=== PATIENT | male | born 2000 | race Two or more races ===

== ENCOUNTER 2022-07-14 19:34 | Emergency (ER) | payer SELFPAY ==
--- NOTE | ~2022-07-14 | XR_ITS ---
EXAM: XR ankle LT min 3V, XR foot LT min 3V DATE: 07/14/2022 20:05 HISTORY: TWISTED LT ANKLE PAIN SWELLING LT FOOT/ANKLE . COMPARISON: None available. FINDINGS: Normal mineralization. Small ossific fragment along the superior margin of the anterior ta trista. Widening of the medial gutter. No lytic or blastic lesion. Joint spaces are maintained. No erosi on or periosteal change. Ankle swelling about the ankle joint. Dorsal soft tissue swelling. Small ank le joint effusion.. IMPRESSION: Medial gutter widening as can be seen with medial ligamentous injury. Possible talonavicu lar capsular avulsion. Reviewed, dictated and finalized at location K. IMPRESSION: Medial gutter widening as can be seen with medial ligamentous injur y. Possible talonavicular capsular avulsion.
[2022-07-14 19:40] VITALS: BP 120/58; PULSE 89; RESP 16; TEMP 36.9; O2SAT 98
--- NOTE | 2022-07-14 20:21 | ED.LOWEXIN ---
HPI - Extremity Injury (Lower) General Chief Complaint: Extremity Injury, Lower Stated Complaint: left ankle pain Time Seen by Provider: 07/14/22 20:30 Source: patient and RN notes reviewed Mode of arrival: ambulatory Limitations: no limitations History of Present Illness HPI Narrative: 22-year-old male presents to the [facility] with complaints of medial left ankle pain since Thursday. States that he was playing basketball when he rolled his ankle. Bruising, swelling noted. Has been wearing a brace and using crutches. Bruising swelling noted to the medial aspect of the foot. Decreased range of motion of the ankle. Sensation intact distal to injury. Able to move toes without issue. Positive pedal pulse. Capillary refill under 2 seconds Onset (ago): day(s) (2) Related Data Allergies Allergy/AdvReac Type Severity Reaction Status Date / Time No Known Allergies Allergy Unverified 10/27/17 11:29 Review of Systems Review of Systems: All systems reviewed & are unremarkable except as noted in HPI and below Constitutional: Constitutional: Reports no additional constitutional complaints, Denies chills and Denies fever(s) Eyes: Eyes: Reports no additional eye complaints ENT: Reports system reviewed and no additional complaints, except as documented Cardiovascular: Cardiovascular: Reports no additional cardiovascular complaints Respiratory: Respiratory: Reports no additional respiratory complaints Gastrointestinal: Gastrointestinal: Reports no additional gastrointestinal complaints Musculoskeletal: Musculoskeletal: Reports as per HPI, Reports arthralgias (left ankle) and Reports joint swelling (left ankle) Integumentary/Breasts: Skin/Breast: Reports system reviewed and no additional complaints, except as docu Neurologic: Reports system reviewed and no additional complaints, except as documented Psychiatric: Psychiatric: Reports no additional psychiatric complaints Allergic/Immunologic: Allergic/Immunologic: Reports no additional allergic/immunologic complaints [facility] Past Medical History Medical History (Updated 07/15/22 @ 11:19 by Kaylynn Mitchell APRN) Patient denies medical problems Surgical History Surgical History (Updated 07/14/22 @ 20:43 by Kaylynn Mitchell APRN) No pertinent past surgical history Social History Social History (Updated 07/14/22 @ 20:43 by Kaylynn Mitchell APRN) Living arrangements: with family Gender identity (if verbalized by the patient): Male Comments At the time of my signature, I reviewed and agree with the nursing past medical, surgical, social, and family history. There is no relevant family history pertinent to the patient complaint. Exam Const: General: healthy appearing, no acute distress and alert Nutritional Appearance: well nourished Orientation/consciousness: patient oriented x3 Limitations: no limitations HENMT: Head: normal to inspection Ears: external ears normal Face and sinus: normal facial exam Eyes: General: appearance normal, both eyes and all related structures Pupils: Equal, round and reactive pupils present Neck: Neck: normal visual inspection, no lymphadenopathy and no meningeal signs Chest: Chest palpation & inspection: normal inspection of the chest Resp: Effort & Inspection: normal respiratory effort and no use of accessory muscles Auscultation: clear to auscultation bilaterally, no crackles, no rales, no rhonchi and no wheezes Cardio: Rate: regular rate Rhythm: regular rhythm Back/Spine/Pelvis: Cervical Spine: normal cervical lordosis Thoracic/Lumbar Spine: thoracic and lumbar spine normal to inspection Skin: General skin exam: normal color Rashes: no rashes Wounds: no wounds Neuro: General: patient oriented x3, moves all extremities, no meningeal signs and no focal motor deficits Cranial nerves: Yes Equal, round and reactive pupils present Speech: normal speech Gait exam (Neuro): Normal gait present Extrem: General: normal to ins
== END 2022-07-14 20:53 | disposition home or self-care (01) ==
PROVIDERS: Emergency Provider Nurse Practitioner
DX: S92.152A Displaced avulsion fracture (chip fracture) of left talus, initial encounter for closed fracture (principal); X50.9XXA Other and unspecified overexertion or strenuous movements or postures, initial encounter; Y93.67 Activity, basketball
CPT/HCPCS: 29515; 73610; 73630; 99214; G0463